=== PATIENT | male | born 1995 | race Caucasian/White ===

== ENCOUNTER 2016-11-30 21:05 | Emergency (ER) | payer MEDICAID ==
[~2016-11-30] VITALS: Ht 177.8 cm; Wt 68.2 kg
[~2016-11-30 21:05] MED LIST: DIPH25CA84 PO; LORA0.5T86 PO; NO ROUTINE MEDS
[2016-11-30 21:40] VITALS: TEMP 98.6; Ht 177.8 cm; Wt 68.2 kg
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
[2016-11-30] MEDS ORDERED: LORAZEPAM 1 MG TABLET PO ONE ×2 (22:45)
[2016-11-30 23:14] VITALS: BP 127/67; PULSE 74; RESP 20; O2SAT 98
[2016-11-30] MEDS ORDERED: HYDR-3841 PO (23:14)
[2016-11-30] MEDS ORDERED: SERT50TA PO (23:14)
== END 2016-11-30 23:14 | disposition home or self-care (01) ==
LOC: ED 21:05
DX: F41.9 Anxiety disorder, unspecified (principal)